=== PATIENT | female | born 1970 | race Caucasian/White ===

== ENCOUNTER 2018-03-16 22:25 | Emergency (ER) | payer OTHER ==
[2018-03-17] MEDS: IBUPROFEN 600 MG TAB PO (00:41)
[2018-03-17] MEDS: AMOXICILLIN 500 MG CAP PO (00:52)
[2018-03-17] MEDS: GUAIFENESIN/DM (SR) TAB PO (00:52)
== END 2018-03-17 00:55 | disposition home or self-care (01) ==
LOC: FTE 03-17 00:55
DX: J01.00 Acute maxillary sinusitis, unspecified (principal); R40.2412 Glasgow coma scale score 13-15, at arrival to emergency department
CPT/HCPCS: 99283; Z7502

== ENCOUNTER 2018-05-18 22:38 | Emergency (ER) | payer SELFPAY, OTHER | END 2018-05-19 01:05 | disposition home or self-care (01) | LOC: FTE 22:38 | DX: J02.9 Acute pharyngitis, unspecified (principal) | CPT/HCPCS: 99284 ==